=== PATIENT | male | born 1945 | race Caucasian/White ===

== ENCOUNTER 2024-08-11 07:16 | Observation (INO) ==
[~2024-08-11 07:16] MED LIST: BUPIVACAINE **LIPOSOME/PF 13.3 MG/ML (266MG/ 20ML) VIAL (RESTRICTED) INFIL ONE; Bupivacaine 0.25% SDV 30 ML ONE; Metoclopramide 5 MG/ML VIAL (10 mg) IV PRN; NS 0.45% 1000 ml BAG 1,000 ML IV SCH; Naloxone 0.4 mg VIAL 0.4 mg/ml 1 ml VIAL IV PRN; Ondansetron 4 mg VIAL 2 MG/ML 2 ml VIAL IV PRN; Tranexamic Acid 1 GM/100ML BAG 2,000 MG/200 ML BAG IV ONE; fentaNYL 100 mcg/2 ml 50 MCG/ML VIAL IV PRN
[2024-08-11] MEDS ORDERED: Tranexamic Acid 1 GM/100ML BAG 2,000 MG/200 ML BAG IV ONE (07:37)
[2024-08-11] MEDS ORDERED: ceFAZolin 2 GM PREMIX 2 GM/50 ML BAG ONE (07:37)
[2024-08-11 08:07] LABS: Rapid COVID-19 Molecular Undetected (Undetected)
[2024-08-11 08:11] LABS: Calcium 9.3 mg/dL (8.6-10.3); Creatinine, Serum 0.85 mg/dL (0.67-1.17); Potassium 4.1 mmol/L (3.5-5.0); eGFR CKD-EPI 89.5 (>60)
[2024-08-11] MEDS ORDERED: Midazolam 2 mg/2 ml VIAL 1 mg/ml 2 ml VIAL (2 mg) ONE ×2 (08:21→09:12)
[2024-08-11] MEDS ORDERED: Propofol 10 MG/ML 20 ML BTL ONE ×2 (08:21→09:44)
[2024-08-11] MEDS ORDERED: fentaNYL 100 mcg/2 ml 50 MCG/ML VIAL ONE ×2 (08:22→12:50)
[2024-08-11] MEDS ORDERED: Glycopyrrolate IV 0.2 MG/ML 1 ML VIAL ONE (09:01)
[2024-08-11] MEDS ORDERED: Dexamethasone IV 4 MG/ML VIAL 1 ml VIAL ONE (09:01)
[2024-08-11] MEDS ORDERED: Ondansetron 4 mg VIAL 2 MG/ML 2 ml VIAL ONE (10:55)
[2024-08-11] MEDS ORDERED: Ondansetron 4 mg VIAL 2 MG/ML 2 ml VIAL IV PRN ×3 (11:39→12:20)
[2024-08-11] MEDS ORDERED: Morphine 2 MG/ML SYRINGE IV PRN ×2 (11:39→12:20)
[2024-08-11] MEDS ORDERED: Ondansetron ODT 4 mg TAB 4 MG TAB PO PRN ×2 (11:39→12:20)
[2024-08-11] MEDS ORDERED: Magnesium Hydroxide LIQ 30 ML UDC PO PRN ×2 (11:39→12:20)
[2024-08-11] MEDS ORDERED: Calcium Carb (TUMS) 500 mg CHEW TAB PO PRN ×2 (11:39→12:20)
[2024-08-11] MEDS ORDERED: Lactulose 30 ml UDC PO PRN ×2 (11:39→12:20)
[2024-08-11] MEDS: Acetaminophen IV 1 GM/100ML 1,000 MG/100 ML BAG IV ONE (11:42)
[2024-08-11] MEDS: Buffered Lidocaine 1% SYRIN 1 ml INTRADERM ONE (11:42)
[2024-08-11] MEDS: Lactated Ringers 1000 ml BAG 1,000 ML IV SCH ×3 (11:43→13:56)
[2024-08-11] MEDS: BUPIVACAINE **LIPOSOME/PF 13.3 MG/ML (266MG/ 20ML) VIAL (RESTRICTED) INFIL ONE (11:43)
[2024-08-11] MEDS ORDERED: Metoclopramide 5 MG/ML VIAL (10 mg) IV PRN (12:20)
[2024-08-11] MEDS ORDERED: Naloxone 0.4 mg VIAL 0.4 mg/ml 1 ml VIAL IV PRN (12:20)
[2024-08-11] MEDS: ceFAZolin 2 GM PREMIX 2 GM/50 ML BAG IV SCH ×2 (12:48→16:03)
[2024-08-11] MEDS: fentaNYL 100 mcg/2 ml 50 MCG/ML VIAL IV PRN (12:52)
[2024-08-11] MEDS ORDERED: NS 0.45% 1000 ml BAG 1,000 ML IV SCH (13:00)
[2024-08-11 15:44] VITALS: BP 162/88
[2024-08-11] MEDS ORDERED: Magnesium Hydroxide LIQ 30 ML UDC PO SCH ×2 (21:00)
[2024-08-12] MEDS ORDERED: Vitamin THERAPEUTIC TAB PO SCH ×2 (09:00)
== END 2024-08-11 18:01 | disposition home or self-care (01) ==
LOC: SSU 07:16 → OR 07:16
PROVIDERS: ADMIT Orthopaedic Surgery Sports Medicine; ATTEND Orthopaedic Surgery Sports Medicine